=== PATIENT | female | born 1950 | race Caucasian/White ===

== ENCOUNTER → 2020-01-10 | Outpatient (CLI) | payer MEDICARE ==
[~2020-01-10] MED LIST: ATENOLOL50 MG PO; DIOVAN HCT 1601 EACH PO; ESTRADIOL1 MG PO; LEVOTHYROXINE75 MCG PO; OXYBUTYNIN CHLOR5 MG PO; POTASSIUM CITR10 MEQ PO; QUETIAPINE FUM100 MG PO; SIMVASTATIN20 MG PO; SPIRIVA18 MCG INH
--- NOTE | 2020-01-10 16:10 | Diagnostic Imaging Report ---
Examination: MRI BRAIN WO CONTRAST History: Meningioma Comparison studies: Head CT dated June 11, 2019 Technique: Sagittal T2; axial DWI, FLAIR, GRE or SWI, T1, Coronal FLAIR. Intravenous contrast: None Findings: Scalp: No abnormal signal. No masses. Bone marrow: Bifrontal craniotomy. Brain volume: Adequate for age. No volume loss. Ventricles: Normal in size and configuration. No hydrocephalus. Extra-axial spaces: Despite lack of intravenous contrast, there has been resection of the right frontal meningioma. No acute abnormalities. Parenchyma: There are patchy and punctate areas of T2/FLAIR hyperintensity in the periventricular and subcortical white matter, nonspecific. No masses, hemorrhage, acute or chronic vascular insults. Suprasellar and sellar region: No abnormalities. Craniocervical junction: No abnormalities. The foramen magnum is patent. No Chiari malformations. Vessels: Normal flow-voids in the arteries and sinuses. Additional findings:None. IMPRESSION: No acute intracranial abnormalities. Interval resection of the right frontal meningioma. Lack of intravenous contrast limits evaluation for residual meningioma. Chronic microvascular ischemic change. Signed by: Dr. Estela Youssef M.D. on 01/10/2020 4:07 PM
== END ==
LOC: MRI 13:55
PROVIDERS: ATTEND Nurse Practitioner Family
DX: D32.9 Benign neoplasm of meninges, unspecified (principal)
CPT/HCPCS: 70551

== ENCOUNTER → 2022-09-08 | Outpatient (CLI) | payer MEDICARE | LOC: MRI 12:44 | PROVIDERS: ATTEND Registered Nurse | DX: Z98.890 Other specified postprocedural states (principal); Z86.018 Personal history of other benign neoplasm | CPT/HCPCS: 70551 ==

== ENCOUNTER → 2022-11-07 | Outpatient (CLI) | payer MEDICARE | LOC: RAD 14:05 | PROVIDERS: ATTEND Internal Medicine Rheumatology | DX: M13.0 Polyarthritis, unspecified (principal) ==

== ENCOUNTER → 2022-11-14 | Outpatient (CLI) | payer MEDICARE | LOC: DX 11:31 | PROVIDERS: ATTEND Internal Medicine Rheumatology | DX: M85.88 Other specified disorders of bone density and structure, other site (principal) | CPT/HCPCS: 77080 ==

== ENCOUNTER → 2024-06-06 | Outpatient (REF) | payer MEDICARE | LOC: DX 11:20 | PROVIDERS: ATTEND Internal Medicine Rheumatology | DX: M85.88 Other specified disorders of bone density and structure, other site (principal) | CPT/HCPCS: 77080 ==